=== PATIENT | male | born 2000 | race Caucasian/White ===

== ENCOUNTER 2019-09-25 12:17 | Emergency (ER) | payer OTHER, SELFPAY ==
[2019-09-25 12:23] VITALS: BP 131/69; PULSE 72; RESP 18; TEMP 36.3; O2SAT 98
--- NOTE | 2019-09-25 12:24 | ED.URI ---
HPI - URI/Sore Throat General Chief Complaint: Upper Respiratory Infection Stated Complaint: sore throat Time Seen by Provider: 09/25/19 12:24 Source: patient and RN notes reviewed History of Present Illness HPI Narrative: Patient is a 18-year-old male who presents the urgent care with complaints of a sore throat and headache. Patient states that it started approximately 1 week ago and he thought it was just allergies . Patient states that he has been using Benadryl. 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 Patient states that he does go yearly for blood work and has been in remission for some time. No other acute complaints. No acute distress noted. Patient read the plan of care. Patient's mother called at [phone]. Prior to discussing any information with the mother, consent was given over the phone from Francis Waters, the patient and verified his date of . Mother was upset that patient did not get any prescriptions for his viral pharyngitis . It was discussed with the mother, as well as the patient prior to leaving, that his strep swab was negative at our facility and that we will send it to the lab for culture and call him if medication was necessary. The patient was asked several times if he had any questions prior to leaving. It was also discussed with the patient that if his sore throat does not improve, that he should follow-up with his doctor due to his past history of leukemia, which was diagnosed after persistent strep throat. Patient verified and verbalized his understanding during his appointment time. Mother was upset that he was sent to the pharmacy to shrimp picker lmdr-lci-obakpon medication and not given a prescription . I offered to send the medication into the pharmacy for the patient, in which he did not ask for while at the facility. Mother did not want the medication and was requesting that the provider call the pharmacy and get their money back . It was discussed with the mother that I am unable to refund her money, considering I did not pay for the medication. Mother then went on to say that there must be something to treat the viral pharyngitis if we treat HIV, which is a virus with the medication . Mother was educated on antiviral medication and still seem to be extremely confused. Mother was then upset that the culture was not done in our facility even though she was made aware that that is not a quick test. Cultures need to grow in a Theresa dish . Mother then got very upset and stated that it should have been done in the office with his history of leukemia . I attempted to discuss with the mother that our testing in our facility is a 7-minute pqyny-zz-ajlp test and very rarely do we have a positives on the lab culture. However, if we do, the patient will be called and antibiotics will be prescribed at that time. Mother was frustrated and hung up the phone stating that they will not be back . The main concern of the mother at the time of the phone call was that the patient forked out $40 in [place] to be seen and nothing was done . Mother was also upset that he was not prescribed [id number] medication at the time of his visit. Related Data Home Medications Medication Instructions Recorded Confirmed No Home Medications 09/25/19 09/25/19 Allergies Allergy/AdvReac Type Severity Reaction Status Date / Time Penicillins Allergy Intermediate Hives / Verified 09/25/19 12:53 Red Face amoxicillin Allergy Unknown Rash Verified 09/25/19 12:53 Review of Systems Review of Systems: Narrative: CONSTITUTIONAL: Denies fever, chills, or sweats. EYES: Denies visual changes, redness, or discharge. ENT: reports of sore throat and drainage CARDIOVASCULAR: Denies chest pain, palpitations, or edema. RESPIRATORY: Denies cough or dyspnea. GASTROINTESTINAL: Denies abdominal pain, nausea, vomiting, or diarrhea. GENITOURINARY: Denies
== END 2019-09-25 13:00 | disposition home or self-care (01) ==
PROVIDERS: Emergency Provider Nurse Practitioner Family; PCP Family Medicine
DX: J02.9 Acute pharyngitis, unspecified (principal); Z85.6 Personal history of leukemia
CPT/HCPCS: 87081; 87880; 99213; G0463

== ENCOUNTER 2019-10-28 11:42 | Emergency (ER) | payer OTHER, SELFPAY ==
[2019-10-28 11:50] VITALS: BP 131/74; PULSE 82; RESP 18; TEMP 36.8; O2SAT 98
--- NOTE | 2019-10-28 11:52 | ED.SKABFB ---
HPI - Skin/Abscess/Foreign Bdy General Chief complaint: Skin/Abscess/Foreign Body Stated complaint: Bite Time Seen by Provider: 10/28/19 11:52 Source: patient and RN notes reviewed History of Present Illness HPI narrative: Patient is a 18-year-old male who presents the urgent care with complaints of rash to the bilateral lower legs. Patient states that he does workout side in tall grass and in the heat. States that he has noticed it approximately 2 to 3 weeks ago and has been sprain waldry yzzg-oln-tgtefic on the area. Patient has not taken anything oral gadg-hwk-byjojsn. Denies of any acute complaints. No acute distress noted. Patient read the plan of care. Related Data Allergies Allergy/AdvReac Type Severity Reaction Status Date / Time Penicillins Allergy Intermediate Hives / Verified 09/25/19 12:53 Red Face amoxicillin Allergy Unknown Rash Verified 09/25/19 12:53 Review of Systems Review of Systems: Narrative: CONSTITUTIONAL: Denies fever, chills, or sweats. EYES: Denies visual changes, redness, or discharge. ENT: Denies rhinorrhea, congestion, sore throat, or otalgia. CARDIOVASCULAR: Denies chest pain, palpitations, or edema. RESPIRATORY: Denies cough or dyspnea. GASTROINTESTINAL: Denies abdominal pain, nausea, vomiting, or diarrhea. GENITOURINARY: Denies dysuria or hematuria. SKIN: Reports of itchy rash to bilateral lower ankles MUSCULOSKELETAL: Denies back pain, joint pain, or myalgia. NEUROLOGIC: Denies headache, numbness, or weakness. All other systems reviewed are negative, except as documented in HPI. PMFSH Comments At the time of my signature, I reviewed and agree with the nursing past medical, surgical, social, and family history. There is no relevant family history pertinent to the patient complaint. Exam Narrative: Exam Narrative: GENERAL: This is a well-nourished, well-developed patient, in no apparent distress. HEAD: normocephalic, atraumatic. EYES: PERRL. Sclera clear/white. Vision is grossly intact. EARS: External ears normal NOSE: External nose normal with no obvious nasal discharge, nares without redness, no rhinorrhea. THROAT: Mucous membranes moist NECK: Neck supple SKIN: Notable dry pruritic dermatitis to bilateral lower legs/ankles-likely chigger bite NEURO: awake, alert, and oriented to person, place and time. There were no obvious focal neurologic abnormalities. EXTREMITIES: No clubbing, cyanosis, or edema. Course Vital Signs Vital signs: Vital Signs Temperature 98.2 F 10/28/19 11:50 Pulse Rate 82 10/28/19 11:50 Respiratory Rate 18 10/28/19 11:50 Blood Pressure 131/74 10/28/19 11:50 Pulse Oximetry 98 10/28/19 11:50 Temperature 98.2 F 10/28/19 11:50 Pulse Rate 82 10/28/19 11:50 Respiratory Rate 18 10/28/19 11:50 Blood Pressure 131/74 10/28/19 11:50 Pulse Oximetry 98 10/28/19 11:50 Reviewed MDM - Skin/Abscess/Foreign Bdy MDM Narrative Medical decision making narrative: Advised the patient to wear tall socks if he is going to be working out in tall grass. Change socks if they become soiled or damp from sweat. Use an lslw-lap-daitxib daily antihistamine such as Claritin or Zyrtec. Use topical cream to the area as directed. May use it branch chief to dry out the areas during the day if necessary. Follow-up with your PCP within 2 to 5 days or for worsening symptoms or failure to improve. Differential Diagnosis Differential diagnosis: Likely abscess of skin or subcutaneous tissue, urticaria, allergic reaction to drug, cellulitis, insect bites and impetigo Critical Care Time Critical Care Time Critical Care Time: No Discharge Plan Discharge Clinical Impression: Chigger bites Patient Disposition: Home, Self-Care Condition: Stable Instructions: Antibiotic Form, Chigger Bite (ED) Additional Instructions: Advised the patient to wear tall socks if he is going to be working out in tall grass. Change socks if they become soiled or damp from swea
== END 2019-10-28 12:10 | disposition home or self-care (01) ==
PROVIDERS: Emergency Provider Nurse Practitioner Family; PCP Family Medicine
DX: B88.0 Other acariasis (principal); C92.01 Acute myeloblastic leukemia, in remission
CPT/HCPCS: 99213; G0463

== ENCOUNTER 2021-06-24 17:54 | Emergency (ER) | payer OTHER, SELFPAY ==
[2021-06-24 18:02] VITALS: BP 123/75; PULSE 71; RESP 14; TEMP 36.6; O2SAT 100
--- NOTE | 2021-06-24 18:10 | ED.URI ---
HPI - URI/Sore Throat General Chief Complaint: Upper Respiratory Infection Stated Complaint: Cough/Chest Congestion Time Seen by Provider: 06/24/21 18:37 Source: patient and RN notes reviewed Mode of arrival: ambulatory Limitations: no limitations History of Present Illness HPI Narrative: 20-year-old male presents concern for 4-day history of cough, runny nose, nasal congestion, low-grade temperature, body aches. Reports symptoms are starting to improve. He reports he is taking Tylenol. Reports he needs to know when he can go back to work. MD elicited complaint: cough Related Data Home Medications Medication Instructions Recorded Confirmed No Home Medications 06/24/21 06/24/21 Allergies Allergy/AdvReac Type Severity Reaction Status Date / Time Penicillins Allergy Intermediate Hives / Verified 06/24/21 18:10 Red Face amoxicillin Allergy Unknown Rash Verified 06/24/21 18:10 Review of Systems Review of Systems: CONSTITUTIONAL: Reports malaise, low-grade fever. EYES: Denies visual changes, redness, or discharge. ENT: Reports rhinorrhea, congestion, and sore throat. CARDIOVASCULAR: Denies chest pain, palpitations, or edema. RESPIRATORY: Reports cough. Denies dyspnea. GASTROINTESTINAL: Denies abdominal pain, nausea, vomiting, diarrhea SKIN: Denies rash or itching. MUSCULOSKELETAL: Reports myalgia. NEUROLOGIC: Denies headache. All systems reviewed & are unremarkable except as noted in HPI and below PMFSH Comments At time of signature, agree with nursing past medical, surgical, social and family history. There is no relevant family history pertinent to the presenting complaint Exam Narrative: GENERAL: Well-appearing, well-nourished, and in no acute distress. HEAD: Normocephalic EYES: PERRLA, conjunctivae clear ENT: Nares clear, clear discharge. Mucous membranes moist. TM pearly noonan with dull light reflex bilaterally; no tragal tenderness. Oropharynx not erythematous without lesions. Tonsils not enlarged and without exudate, no drooling, no hoarseness, no trismus, uvula midline. NECK: Supple. No lymphadenopathy CHEST: Clear to auscultation, breath sounds equal. No wheezing, rhonchi, rales, or stridor. No respiratory distress, speaks in full sentences. HEART: Regular rate and rhythm. No murmur heard. SKIN: Warm, dry, no rash. NEURO: Alert and oriented x3. PSYCH: Normal mood and affect Course Course Emergency Course: Patient is aware of diagnosis, understands and agrees to treatment plan. Anticipatory guidance given. Patient agrees to follow-up as directed and is aware of reasons to seek care at the emergency department. Portions of this record may have been created with voice recognition software Level of Care: Express Care Visit Vital Signs Vital signs: Vital Signs Temperature 97.9 F 06/24/21 18:02 Pulse Rate 71 06/24/21 18:02 Respiratory Rate 14 06/24/21 18:02 Blood Pressure 123/75 06/24/21 18:02 Pulse Oximetry 100 06/24/21 18:02 Temperature 97.9 F 06/24/21 18:02 Pulse Rate 71 06/24/21 18:02 Respiratory Rate 14 06/24/21 18:02 Blood Pressure 123/75 06/24/21 18:02 Pulse Oximetry 100 06/24/21 18:02 Reviewed. MDM - URI/Sore Throat MDM Narrative Medical decision making narrative: Differential diagnosis considered: Jaramillo virus, strep pharyngitis, allergic rhinitis, upper respiratory tract infection, sinusitis, rhinosinusitis, nasopharyngitis. viral pharyngitis, otitis media, otitis externa, pneumonia, bronchitis, viral cough syndrome, viral syndrome, and influenza. Exam findings show no acute concerns or changes; patient is non-toxic appearing and is in no distress. Patient is appropriate for outpatient treatment and follow-up. Lab Data Attestation: I reviewed the patient's lab results. Critical Care Time Critical Care Time Critical Care Time: No Discharge Plan Discharge Clinical Impression: Influenza A Patient Disposition: Home, Self-Care Condition: Stabl
== END 2021-06-24 18:48 | disposition home or self-care (01) ==
PROVIDERS: Emergency Provider Nurse Practitioner; PCP Family Medicine
DX: J10.1 Influenza due to other identified influenza virus with other respiratory manifestations (principal); C92.01 Acute myeloblastic leukemia, in remission
CPT/HCPCS: 87081; 87804; 87880; 99213; G0463

== ENCOUNTER 2022-03-29 16:33 | Emergency (ER) | payer OTHER, SELFPAY ==
[2022-03-29 16:40] VITALS: BP 142/83; PULSE 88; RESP 20; TEMP 37.1; O2SAT 100
--- NOTE | 2022-03-29 16:47 | ED.SKABFB ---
HPI - Skin/Abscess/Foreign Bdy General Chief complaint: Skin/Abscess/Foreign Body Stated complaint: Rash Time Seen by Provider: 03/29/22 16:47 History of Present Illness HPI narrative: red scaly rash to left upper arm. patient has not tried anything OTC for symptoms itches at times. Related Data Allergies Allergy/AdvReac Type Severity Reaction Status Date / Time Penicillins Allergy Intermediate Hives / Verified 03/29/22 16:48 Red Face amoxicillin Allergy Unknown Rash Verified 03/29/22 16:48 Review of Systems Review of Systems: CONSTITUTIONAL: Denies fever, chills, or sweats. EYES: Denies visual changes, redness, or discharge. ENT: Denies rhinorrhea, congestion, sore throat, or otalgia. CARDIOVASCULAR: Denies chest pain, palpitations, or edema. RESPIRATORY: Denies cough or dyspnea. GASTROINTESTINAL: Denies abdominal pain, nausea, vomiting, or diarrhea. GENITOURINARY: Denies dysuria or hematuria. SKIN: Denies rash or itching. MUSCULOSKELETAL: Denies back pain, joint pain, or myalgia. NEUROLOGIC: Denies headache, numbness, or weakness. PSYCHIATRIC: Denies anxiety or depression. PMFSH Comments At time of signature, agree with nursing past medical, surgical, social and family history. There is no relevant family history pertinent to the presenting complaint Exam Narrative: GENERAL: Well-appearing, well-nourished, and in no acute distress. HEAD: Normocephalic, atraumatic. EYES: PERRLA and EOMI. ENT: Nares clear, no rhinorrhea or epistaxis. Mucous membranes moist. NECK: Supple. CHEST: Clear to auscultation. No respiratory distress. HEART: Regular rate and rhythm. No murmur heard. Normal peripheral pulses. ABDOMEN: Soft, nontender, nondistended, normal active bowel sounds. EXTREMITIES: Normal range of motion. No edema. SKIN: Warm, dry, multiple bright red lesions to left forearm patient states he tried steroid cream which made it worse will treat as fungal dermatitis. NEURO: No focal deficits. Alert and oriented x3. Gaby Coma Scale Eye Opening: Spontaneous 4 [place] Coma Scale Motor: Obeys Commands 6 [place] Coma Scale Verbal: Oriented 5 [place] Coma Scale Total 15 Course Course Level of Care: Express Care Visit Vital Signs Vital signs: Vital Signs Temperature 37.1 C 03/29/22 16:40 Pulse Rate 88 03/29/22 16:40 Respiratory Rate 20 03/29/22 16:40 Blood Pressure 142/83 H 03/29/22 16:40 Pulse Oximetry 100 03/29/22 16:40 Oxygen Delivery Room Air 03/29/22 16:40 Temperature 37.1 C 03/29/22 16:40 Pulse Rate 88 03/29/22 16:40 Respiratory Rate 20 03/29/22 16:40 Blood Pressure 142/83 H 03/29/22 16:40 Pulse Oximetry 100 03/29/22 16:40 Oxygen Delivery Room Air 03/29/22 16:40 Please ANAND schedule a followup visit with your personal physician for further evaluation and treatment. Including recheck and discussion of your blood pressure. If your symptoms persist, change or worsen significantly before you can contact your personal physician then please, without delay, go to the emergency department for further evaluation MDM - Skin/Abscess/Foreign Bdy Differential Diagnosis Differential diagnosis: Likely abscess of skin or subcutaneous tissue, viral exanthem, dermatophytosis, urticaria, herpes zoster, allergic reaction to drug, cellulitis, eczema, insect bites, impetigo and contact dermatitis Discharge Plan Discharge Clinical Impression: Fungal dermatitis Patient Disposition: Home, Self-Care Condition: Stable Instructions: Skin Yeast Infection (ED) Additional Instructions: Medication as prescribed Follow-up with primary care provider in a.m. for Dermatology referral Keep area moisturized and cleansed with warm soapy water and antibacterial soap If any new or worsening symptoms please go the ER immediately for further evaluation treatment Prescriptions: New clotrimazole 1 % cream 1 applic TOPICAL BID 7 Days Qty: 28 0RF Follow-up/Referrals: Meir,Darin
== END 2022-03-29 17:00 | disposition home or self-care (01) ==
PROVIDERS: Emergency Provider Nurse Practitioner Family; PCP Family Medicine
DX: B36.9 Superficial mycosis, unspecified (principal); C95.91 Leukemia, unspecified, in remission
CPT/HCPCS: 99213; G0463